=== PATIENT | male | born 1980 | race Caucasian/White ===

== ENCOUNTER → 2016-11-13 | Outpatient (CLI) | payer BC ==
[2016-11-13 10:12] LABS: DAYS OF ABSTINENCE >7; METHOD OF COLLECTION MASTURBATION; SEMEN TIME OF COLLECTION 833; TYPE OF SPECIMEN CONTAINER STERILE CUP
[2016-11-13 10:13] LABS: SEMEN COLOR YELLOW-GRAY (GRY/GRYWHTE); SEMEN VOLUME 2.3 ML (>1.5)
[2016-11-13 10:36] LABS: SPERM VIABILITY STAIN NOT INDICATED % (>58%)
== END | disposition home or self-care (01) ==
LOC: C.LAB 09:07
PROVIDERS: ATTEND Obstetrics & Gynecology
DX: Z31.41 Encounter for fertility testing (principal)

== ENCOUNTER 2017-03-04 21:39 | Emergency (ER) | payer BC, OTHER ==
[~2017-03-04] VITALS: Ht 190.5 cm; Wt 104.9 kg
[2017-03-04 21:46] VITALS: TEMP 37.4; Ht 190.5 cm; Wt 104.9 kg
[2017-03-04] MEDS ORDERED: CEFTRIAXONE SOD INJ 1 GM ADDVIAL IV STA (22:28)
[2017-03-04] MEDS ORDERED: DIPHTHERIA/TETANUS/PERTUSSIS 0.5 ML SYR/VIAL IM. ONE (22:30)
[2017-03-04 23:22] LABS: ISTAT CREATININE 1.2 mg/dl (0.6-1.3); ISTAT IONIZED CALCIUM 1.14 mmol/l (1.12-1.32); ISTAT POTASSIUM 3.8 mEq/L (3.3-5.0)
[2017-03-04 23:28] LABS: BASO % 0.2 %; BASO ABS # 0.02 K/uL (0-0.2); EOS % 1.9 %; EOS ABS # 0.18 K/uL (0-0.5); HEMATOCRIT 39.5 % (42-52); HEMOGLOBIN 14.1 g/dL (14.0-18.0); IG# 0.02 K/uL (0.00-0.02); LYMPH % 21.4 %; LYMPH ABS # 1.98 K/uL (1.2-3.4); MEAN CELL VOLUME 91.2 fL (80-100); MEAN CORPUSCULAR HEMOGLOBIN 32.6 pg (25-34); MEAN CORPUSCULAR HGB CONC 35.7 g/dl (32-36); MEAN PLATELET VOLUME 10.2 fL (7.4-10.4); MONO % 10.2 %; MONO ABS # 0.95 K/uL (0.11-0.59); NEUT % 66.1 %; NEUT ABS # 6.12 K/uL (1.4-6.5); PLATELET COUNT 140 K/uL (130-400); RED CELL DISTRIBUTION WIDTH CV 11.8 % (11.5-14.5); RED CELL DISTRIBUTION WIDTH SD 39.6 fL (36.4-46.3); WHITE BLOOD COUNT 9.27 K/uL (4.8-10.8)
[2017-03-04 23:55] LABS: ALBUMIN 3.6 gm/dl (3.4-5.0); ALT/SGPT 28 U/L (12-78); AST/SGOT 28 U/L (15-37); BLOOD UREA NITROGEN 15 mg/dl (7-18); CALCIUM 8.9 mg/dl (8.5-10.1); CARBON DIOXIDE 30 mmol/L (21-32); CREATININE 1.11 mg/dl (0.60-1.40); GLUCOSE 105 mg/dl (70-99); POTASSIUM 3.7 mmol/L (3.5-5.1); SODIUM 138 mmol/L (136-145); URIC ACID 5.3 mg/dl (2.6-7.2)
[2017-03-04 23:57] LABS: ALKALINE PHOSPHATASE 66 U/L (45-117); TOTAL PROTEIN 7.6 gm/dl (6.4-8.2)
[2017-03-05] MEDS ORDERED: SEPTRA DS HOME PACK 1 EA VIAL PO ONE (01:00)
[2017-03-05] MEDS ORDERED: CEPHALEXIN 500MG HOME PACK 1 EA BTL PO ONE (01:00)
[2017-03-05] MEDS ORDERED: CEPH500C2 PO (01:02)
[2017-03-05] MEDS ORDERED: SULF800T23 PO (01:02)
[2017-03-05 01:20] VITALS: BP 134/70; PULSE 68; O2SAT 100
--- NOTE | 2017-03-05 03:51 | EMERGENCY ROOM VISIT NOTE ---
History First contact with patient: 22:15 Chief Complaint: ELBOW PAIN/INJURY Stated Complaint: RIGHT ELBOW POSSIBLY INFECTED History of Present Illness The patient is a 36 year old male who presents to the Emergency Room with complaints of right elbow pain and swelling for the past 2 days that is steadily getting worse of subjective fever and chills. Patient has been taking Motrin [id number] and icing the area. No known injury. Tetanus is not current. He describes the pain as throbbing, ranging in severity 5 out of 10 worse with palpation and better with rest. It does not radiate. Patient denies chest pain, dyspnea, numbness, tingling, injury to the area, cough, congestion. No history of gout. No history of bursitis. No IV drug abuse. Review of Systems See HPI for pertinent positives & negatives. A total of 10 systems reviewed and were otherwise negative. Past Medical/Surgical History None Social History Smoking Status: Never Smoker Smokeless Tobacco Use: No Alcohol Use: occasionally Drug Use: none Marital Status: Housing Status: lives with family Occupation Status: employed Current/Historical Medications Scheduled Cephalexin Monohydrate (Keflex), 500 MG PO QID Sulfa/Trimethoprim (Bactrim Ds 800MG/160MG), 1 TAB PO BID Physical Exam Vital Signs Date Time Temp Pulse Resp B/P (MAP) Pulse Ox O2 Delivery O2 Flow Rate FiO2 03/05/17 01:20 68 18 134/70 100 03/05/17 00:33 70 20 140/72 99 Room Air 03/04/17 21:46 37.4 73 18 157/84 98 Room Air Physical Exam VITALS: Vitals are noted on the nurse's note and reviewed by myself. Vital signs hypertensive. GENERAL:pleasant male, in no acute distress, nondiaphoretic, well-developed well -nourished. SKIN: The skin was without rashes, erythema, edema, or bruising. There is no tenting of the skin. Capillary reflex less than 2 seconds. HEAD: Normocephalic atraumatic. EARS: External auditory canals clear, tympanic membranes pearly longoria without erythema or effusion bilaterally. EYES: Pupils equal round and reactive to light and accommodation. Conjunctivae without injection, sclerae without icterus. Extraocular movements intact. NOSE: Patent, turbinates without inflammation or discharge. MOUTH: Mucous membranes moist. Pharynx without erythema or exudate. Uvula midline. Airway patent. Tongue does not deviate. NECK: Supple without nuchal rigidity. No lymphadenopathy. No thyromegaly. Cervical spine is nontender. No JVD. HEART: Regular rate and rhythm without murmurs gallops or rubs. LUNGS: Clear to auscultation bilaterally without wheezes, rales or rhonchi. No dullness to percussion. No retractions or accessory muscle use. ABDOMEN: Positive bowel sounds x 4. Normal tympanic percussion. Soft, nontender, without masses or organomegaly. Salgado sign negative. No guarding or rebound tenderness. MUSCULOSKELETAL: No muscle atrophy noted. Right elbow erythematous and slightly edematous with lymphangitis going up the bicep region concerning for cellulitis. Patient can fully extend and flex the elbow without pain. Radial pulses +2 equal present bilaterally. No axillary lymph node enlargement. NEURO: Patient was alert and oriented to person place and time. Normal sensation to light and sharp touch. No focal neurological deficits. Medical Decision & Procedures Laboratory Results 03/04/17 23:00 Red Blood Count 4.33, Mean Corpuscular Volume 91.2, Mean Corpuscular Hemoglobin 32.6, Mean Corpuscular Hemoglobin Concent 35.7, Mean Platelet Volume 10.2, Neutrophils (%) (Auto) 66.1, Lymphocytes (%) (Auto) 21.4, Monocytes (%) (Auto) 10.2, Eosinophils (%) (Auto) 1.9, Basophils (%) (Auto) 0.2, Neutrophils # (Auto ) 6.12, Lymphocytes # (Auto) 1.98, Monocytes # (Auto) 0.95, Eosinophils # (Auto ) 0.18, Basophils # (Auto) 0.02 03/04/17 23:00 Test 03/04/17 23:00 03/04/17 23:05 03/04/17 23:09 White Blood Count 9.27 K/uL (4.8-10.8) Red Blood Count 4.33 M/uL (4.7-6.1) Hemoglobin 14.1 g/dL (14.0-18.0) Hematocrit 39.5 % (42-52) Mean Corpuscular Volume 91.2 fL (80-100) Mean Corpuscular Hemoglobin 32.6 pg (25-34) Mean Corpuscular Hemoglobin Concent 35.7 g/dl (32-36) Platelet Count 140 K/uL (130-400) Mean Platelet Volume 10.2 fL (7.4-10.4) Neutrophils (%) (Auto) 66.1 % Lymphocytes (%) (Auto) 21.4 % Monocytes (%) (Auto) 10.2 % Eosinophils (%) (Auto) 1.9 % Basophils (%) (Auto) 0.2 % Neutrophils # (Auto) 6.12 K/uL (1.4-6.5) Lymphocytes # (Auto) 1.98 K/uL (1.2-3.4) Monocytes # (Auto) 0.95 K/uL (0.11-0.59) Eosinophils # (Auto) 0.18 K/uL (0-0.5) Basophils # (Auto) 0.02 K/uL (0-0.2) RDW Standard Deviation 39.6 fL (36.4-46.3) RDW Coefficient of Variation 11.8 % (11.5-14.5) Immature Granulocyte % (Auto) 0.2 % Immature Granulocyte # (Auto) 0.02 K/uL (0.00-0.02) Erythrocyte Sedimentation Rate 8 mm/hr (0-14) Est Creatinine Clear Calc Drug Dose 122.9 ml/min Estimated GFR () 99.9 Estimated GFR (Non- 86.2 BUN/Creatinine Ratio 13.4 (10-20) Uric Acid 5.3 mg/dl (2.6-7.2) Calcium Level 8.9 mg/dl (8.5-10.1) Total Bilirubin 0.4 mg/dl (0.2-1) Direct Bilirubin < 0.1 mg/dl (0-0.2) Aspartate Amino Transf (AST/SGOT) 28 U/L (15-37) Alanine Aminotransferase (ALT/SGPT) 28 U/L (12-78) Alkaline Phosphatase 66 U/L (45-117) C-Reactive Protein 7.07 mg/dl (0-0.29) Total Protein 7.6 gm/dl (6.4-8.2) Albumin 3.6 gm/dl (3.4-5.0) Bedside Hemoglobin 12.2 g/dl (14.0-18.0) Bedside Hematocrit 36 % (42-52) Bedside Sodium 141 mEq/L (135-144) Bedside Potassium 3.8 mEq/L (3.3-5.0) Bedside Chloride 101 mEq/L (101-112) Bedside Total CO2 27 mEq/l (24-31) Anion Gap 18.0 mmol/L (16-25) Bedside Blood Urea Nitrogen 15 mg/dl (7-18) Bedside Creatinine 1.2 mg/dl (0.6-1.3) Bedside Glucose (other) 115 mg/dl (70-99) Bedside Ionized Calcium ([place]) 1.14 mmol/l (1.12-1.32) Bedside Lactic Acid Venous 1.28 mmol/L (0.90-1.70) Medications Administered Medications (Trade) Dose Ordered Sig/Cheri Route Start Time Stop Time Status Last Admin Dose Admin Ceftriaxone Sodium (Rocephin Inj) 1 gm NOW STAT IV 03/04/17 22:28 03/04/17 22:32 DC 03/04/17 23:21 1 GM Diphtheria/ Pertussis/Tetanus Vacc (Adacel Inj) 0.5 ml ONCE ONCE IM. 03/04/17 22:30 03/04/17 22:32 DC 03/04/17 23:22 0.5 ML Cephalexin Monohydrate (Keflex 500MG Home Pack) 1 homepack NOW ONCE PO 03/05/17 01:00 03/05/17 01:01 DC 03/05/17 01:20 1 HOMEPACK Trimethoprim/ Sulfamethoxazole (Sulfameth/ Trimeth Ds 800/ 160MG Home Pack) 1 homepack UD ONCE PO 03/05/17 01:00 03/05/17 01:01 DC 03/05/17 01:20 1 HOMEPACK ED Course Prior records reviewed and summarized as above. Triage Nursing notes reviewed. The patient's history was concerning for swelling and redness of the skin. Differential diagnosis: Etiologies such as gout, bursitis, septic joint, septic bursitis, cellulitis, abscess, MRSA infection, DVT, necrotizing fasciitis, dermatitis, drug eruption, as well as others were entertained.. Physical examination: As above ER treatment provided: Rocephin On reassessment the patient felt better. Diagnostics interpreted by me: The labs revealed no leukocytosis. Mildly elevated inflammatory markers Blood cultures pending Imaging studies: Elbow x-ray negative for fracture or dislocation or effusion per my interpretation Ultrasound negative for DVT per radiology This appears to be left upper extremity cellulitis. Patient had no signs of joint involvement. He is able to fully extend and flex the arm. He was afebrile and nontoxic. Negative lactic acid. No leukocytosis. Patient was neurovascularly and neurologically intact. He was advised to take medications as directed, rest, stay well-hydrated and to follow-up with family care in 2-3 days for recheck or here in the ER sooner for fevers, spreading infection, worsening signs or symptoms or as needed. By the evaluation outlined above emergent etiologies such as abscess, necrotizing fasciitis, DVT, as well as others were deemed relatively unlikely. The pt informed about the findings as listed above. All questions were answered and pleased with the treatment. Return instructions were outlined and the patient was discharged in stable condition. Outpatient prescription management: Keflex, Bactrim Referral: The patient was referred back to primary care physician for follow-up in 2 to 3 days for a recheck of the current condition. case reviewed with my Attending Medical Decision As above Medication Reconcilliation Current Medication List: was personally reviewed by me Blood Pressure Screening Patient's blood pressure: Elevated blood pressure Blood pressure disposition: Elevated BP felt to be situational Impression Primary Impression: Cellulitis of right upper arm Departure Information Dispostion Home / Self-Care Condition GOOD Prescriptions Sulfa/Trimethoprim (Bactrim Ds 800MG/160MG) Tab 1 TAB PO BID for 9 Days, #18 TAB Prov: Linda Kam .SIMÓN 03/05/17 Cephalexin Monohydrate (KEFLEX) 500 Mg Cap 500 MG PO QID for 9 Days, #36 CAP Prov: Linda Kam .SIMÓN 03/05/17 Referrals Klaudia Irby M.D. (PCP) Patient Instructions My [facility]
--- NOTE | 2017-03-05 06:46 | DIAGNOSTIC IMAGING REPORT ---
R ELBOW MIN 3 VIEWS ROUTINE HISTORY: 36 years-old Male pain/swelling acute pain and swelling of the right elbow COMPARISON: None available TECHNIQUE: 3 views of the right elbow FINDINGS: Mild soft tissue swelling is noted posteriorly about the elbow. Minimal spurring of the olecranon process. No large joint effusion, acute fracture, subluxation or significant degenerative changes. IMPRESSION: Mild soft tissue swelling without fracture. The above report was generated using voice recognition software. It may contain grammatical, syntax or spelling errors. Electronically signed by: Sadiq Cervantes M.D. 03/05/2017 6:44 AM Dictated Date/Time: 03/05/2017 6:43 AM
--- NOTE | 2017-03-05 07:19 | DIAGNOSTIC IMAGING REPORT ---
RIGHT UPPER EXTREMITY VENOUS DOPPLER HISTORY: right elbow swelling COMPARISON STUDY: None. FINDINGS: The right internal jugular vein is patent. There is normal flow within the right subclavian vein. There is normal flow and compressibility within the right axillary, basilic, brachial, radial, ulnar, and visualized cephalic veins. Prominent right upper arm lymph nodes which may be reactive. The largest measures 1.6 x 0.4 x 0.5 cm. IMPRESSION: No DVT within the right upper extremity. Prominent right upper arm lymph nodes which may be reactive. Electronically signed by: Dayne Aldridge M.D. 03/05/2017 7:17 AM Dictated Date/Time: 03/05/2017 7:17 AM
== END 2017-03-05 01:21 | disposition home or self-care (01) ==
LOC: C.EDB 21:40 → C.EDA 03-05 01:21
DX: L03.113 Cellulitis of right upper limb (principal); Z23 Encounter for immunization

== ENCOUNTER 2017-06-30 15:01 | Emergency (ER) | payer OTHER ==
[~2017-06-30] VITALS: Ht 190.5 cm; Wt 104.0 kg
[2017-06-30 15:04] VITALS: BP 149/87; TEMP 36.6; Ht 190.5 cm; Wt 104.0 kg
[2017-06-30 15:36] LABS: BASO % 0.5 %; BASO ABS # 0.03 K/uL (0-0.2); EOS % 2.7 %; EOS ABS # 0.15 K/uL (0-0.5); HEMATOCRIT 41.1 % (42-52); HEMOGLOBIN 14.7 g/dL (14.0-18.0); LYMPH % 41.3 %; LYMPH ABS # 2.27 K/uL (1.2-3.4); MEAN CELL VOLUME 89.7 fL (80-100); MEAN CORPUSCULAR HEMOGLOBIN 32.1 pg (25-34); MEAN CORPUSCULAR HGB CONC 35.8 g/dl (32-36); MEAN PLATELET VOLUME 10.1 fL (7.4-10.4); MONO % 8.2 %; MONO ABS # 0.45 K/uL (0.11-0.59); NEUT % 47.3 %; PLATELET COUNT 149 K/uL (130-400); RED CELL DISTRIBUTION WIDTH SD 38.9 fL (36.4-46.3)
[2017-06-30 15:53] LABS: CREATININE 1.15 mg/dl (0.60-1.40); POTASSIUM 3.5 mmol/L (3.5-5.1)
[2017-06-30 15:54] LABS: CALCIUM 8.6 mg/dl (8.5-10.1)
[2017-06-30] MEDS ORDERED: OPTIRAY 320 IV PRN (16:30)
--- NOTE | 2017-06-30 16:34 | EMERGENCY ROOM VISIT NOTE ---
History First contact with patient: 15:06 Chief Complaint: HEADACHE Stated Complaint: HEADACHE,DIZZY AFTER LIFTING History of Present Illness The patient is a 37 year old male who presents to the Emergency Room with complaints of headache and lightheadedness. The patient reports that he was lifting weights approximately 30 minutes ago when symptoms began. He states that he was performing a heavy bench press and felt a popping sensation in his head. He then developed a headache and lightheadedness. He states that he feels like he has slight trouble focusing his eyes but denies blurred vision or double vision. He states that his headache is a dull pain in the front of his head and rates the discomfort a 4/10. Symptoms have been constant since they began and he states that the headache may have improved slightly. There have been no aggravating or alleviating factors. He denies any syncopal episodes. He states he does not feel like the room is spinning. He denies any numbness or weakness, slurred speech, confusion, neck pain or stiffness. He feels very mild nausea but has not vomited. The patient does admit that over the past 1 year, he sometimes becomes lightheaded and has tension type headaches intermittently which he attributes to stress and anxiety. He has never had symptoms like this which began with exertion in the past. He reports a family history of a CVA in his grandfather but no other pertinent family history. Review of Systems A complete 10 point review of systems was reviewed with the patient with pertinent positives and negatives as per history of present illness. All else were negative. Past Medical/Surgical History Medical Problems: (1) No significant active problems Surgical Problems: (1) No significant past surgical history Family History Stroke Social History Smoking Status: Never Smoker Alcohol Use: occasionally Drug Use: none Marital Status: Housing Status: lives with family Occupation Status: employed Current/Historical Medications No Active Prescriptions or Reported Meds Physical Exam Vital Signs Date Time Temp Pulse Resp B/P (MAP) Pulse Ox O2 Delivery O2 Flow Rate FiO2 06/30/17 17:08 62 18 98 06/30/17 16:24 62 16 99 Room Air 06/30/17 15:04 36.6 60 18 149/87 96 Room Air Physical Exam VITALS: Vitals are noted on the nurse's note and reviewed by myself. Vital signs stable. GENERAL: This is a 37-year-old male, in no acute distress, nondiaphoretic, well- developed well-nourished. SKIN: The skin was without rashes. HEAD: Normocephalic atraumatic. EARS: External auditory canals clear, tympanic membranes pearly longoria without erythema or effusion bilaterally. EYES: Pupils equal round and reactive to light and accommodation. Extraocular movements intact. MOUTH: Mucous membranes moist. NECK: Supple without nuchal rigidity. Cervical spine is nontender. No meningismus. HEART: Regular rate and rhythm without murmurs gallops or rubs. LUNGS: Clear to auscultation bilaterally without wheezes, rales or rhonchi. MUSCULOSKELETAL: Strength 5/5 throughout. NEURO: Patient was alert and oriented to person place and time. Distal sensation intact. No focal neurological deficits. Normal finger to nose testing. Medical Decision & Procedures ER Provider Diagnostic Interpretation: HEAD CTA HISTORY: Headache. TECHNIQUE: Multiaxial CT images of the head were performed both before and after the intravenous administration of contrast to evaluate the major cerebral vessels. Maximum intensity projection images were also obtained. A dose lowering technique was utilized adhering to the principles of ALARA. COMPARISON: None. FINDINGS: There is no mass, hematoma, midline shift, or acute infarct. Small retention cysts within the left maxillary sinus and right ethmoid air cells. The mastoid air cells are clear. Prominence of the cisterna magna versus an arachnoid cyst within the midline of the posterior fossa. This measures 4.9 x 2.3 cm. This is of doubtful clinical significance. No abnormal enhancement. Visualized intracranial internal carotid arteries, distal vertebral arteries, and basilar artery are widely patent. There is no significant stenosis, occlusion, or aneurysm seen within the bilateral ACAs, MCAs, or machine operator slitter technician. IMPRESSION: No significant stenosis, occlusion, or aneurysm within the [place]. No acute intracranial abnormality. Laboratory Results 06/30/17 15:20 Red Blood Count 4.58, Mean Corpuscular Volume 89.7, Mean Corpuscular Hemoglobin 32.1, Mean Corpuscular Hemoglobin Concent 35.8, Mean Platelet Volume 10.1, Neutrophils (%) (Auto) 47.3, Lymphocytes (%) (Auto) 41.3, Monocytes (%) (Auto) 8.2, Eosinophils (%) (Auto) 2.7, Basophils (%) (Auto) 0.5, Neutrophils # (Auto) 2.60, Lymphocytes # (Auto) 2.27, Monocytes # (Auto) 0.45, Eosinophils # (Auto) 0.15, Basophils # (Auto) 0.03 06/30/17 15:20 Test 06/30/17 15:20 White Blood Count 5.50 K/uL (4.8-10.8) Red Blood Count 4.58 M/uL (4.7-6.1) Hemoglobin 14.7 g/dL (14.0-18.0) Hematocrit 41.1 % (42-52) Mean Corpuscular Volume 89.7 fL (80-100) Mean Corpuscular Hemoglobin 32.1 pg (25-34) Mean Corpuscular Hemoglobin Concent 35.8 g/dl (32-36) Platelet Count 149 K/uL (130-400) Mean Platelet Volume 10.1 fL (7.4-10.4) Neutrophils (%) (Auto) 47.3 % Lymphocytes (%) (Auto) 41.3 % Monocytes (%) (Auto) 8.2 % Eosinophils (%) (Auto) 2.7 % Basophils (%) (Auto) 0.5 % Neutrophils # (Auto) 2.60 K/uL (1.4-6.5) Lymphocytes # (Auto) 2.27 K/uL (1.2-3.4) Monocytes # (Auto) 0.45 K/uL (0.11-0.59) Eosinophils # (Auto) 0.15 K/uL (0-0.5) Basophils # (Auto) 0.03 K/uL (0-0.2) RDW Standard Deviation 38.9 fL (36.4-46.3) RDW Coefficient of Variation 12.0 % (11.5-14.5) Immature Granulocyte % (Auto) 0.0 % Immature Granulocyte # (Auto) 0.00 K/uL (0.00-0.02) Anion Gap 7.0 mmol/L (3-11) Est Creatinine Clear Calc Drug Dose 117.0 ml/min Estimated GFR () 95.0 Estimated GFR (Non- 82.0 BUN/Creatinine Ratio 15.5 (10-20) Calcium Level 8.6 mg/dl (8.5-10.1) Medical Decision The differential diagnosis includes acute intracranial bleed, meningitis, encephalitis, mass or mass effect, sinusitis, infection, tumor, headache, temporal arteritis and carbon monoxide exposure, and migraine. The patient is a 37-year-old male who presents today complaining of mild headache and lightheadedness. CT/CTA of the head were performed due to the exertional component of the patient's symptoms. These were found to be unremarkable. Labs revealed no leukocytosis, anemia or concerning electrolyte abnormalities. Patient does admit that he is extremely anxious about his symptoms and I do feel this is likely contributing to some of his symptoms today. He was advised to use [id number] treatment for his pain and follow -up with the PCP this week. He verbalized understanding of my assessment and treatment plan and was discharged home in good condition. The patient's case was reviewed with Dr. Lindsey, ED attending physician, who agreed with my assessment and treatment plan. Based on the patient's presentation and work up, I feel the patient is stable for outpatient treatment. The patient was educated to return to the emergency department for any worsening of their current condition or new/concerning symptoms. He will follow up with his PCP. Medication Reconcilliation Current Medication List: was personally reviewed by me Blood Pressure Screening Patient's blood pressure: Elevated blood pressure Blood pressure disposition: Elevated BP felt to be situational Impression Primary Impression: Headache Departure Information Dispostion Home / Self-Care Condition GOOD Prescriptions No Active Prescriptions or Reported Meds Referrals Klaudia Irby M.D. (PCP) Patient Instructions My [facility] Additional Instructions You have been treated in the Emergency Department for a Headache. For pain control, you can use the following [id number] medicines (if >12 yo): - Regular strength (325mg/tab) Tylenol (acetaminophen) 2 tabs every 4-6 hours as needed. Do not exceed 12 tablets in a 24 hour period. Avoid taking more than 4 grams (4000 mg) of Tylenol per day. This includes any other sources of acetaminophen you may take on a regular basis. - Regular strength (200 mg/tab) Advil (ibuprofen) 1-2 tabs every 4-6 hours as needed. Do not exceed a dose of 3200 mg per day. As with any visit to the emergency department, you should follow-up with your primary care provider regarding this visit. Return to the Emergency Department if your current symptoms worsen despite treatment course outlined above, or if you develop any of the following symptoms : intractable pain despite aforementioned treatment course, visual disturbances , loss of vision, unilateral weakness or facial drooping, slurring of speech, loss of coordination, or loss of consciousness. Problem Qualifiers Primary Impression: Headache Headache type: unspecified Headache chronicity pattern: acute headache Intractability: not intractable Qualified Codes: R51 - Headache
--- NOTE | 2017-06-30 16:37 | DIAGNOSTIC IMAGING REPORT ---
HEAD CTA HISTORY: Headache. TECHNIQUE: Multiaxial CT images of the head were performed both before and after the intravenous administration of contrast to evaluate the major cerebral vessels. Maximum intensity projection images were also obtained. A dose lowering technique was utilized adhering to the principles of ALARA. COMPARISON: None. FINDINGS: There is no mass, hematoma, midline shift, or acute infarct. Small retention cysts within the left maxillary sinus and right ethmoid air cells. The mastoid air cells are clear. Prominence of the cisterna magna versus an arachnoid cyst within the midline of the posterior fossa. This measures 4.9 x 2.3 cm. This is of doubtful clinical significance. No abnormal enhancement. Visualized intracranial internal carotid arteries, distal vertebral arteries, and basilar artery are widely patent. There is no significant stenosis, occlusion, or aneurysm seen within the bilateral ACAs, MCAs, or farmworker poultry. IMPRESSION: No significant stenosis, occlusion, or aneurysm within the [place] of [place]. No acute intracranial abnormality. Electronically signed by: Dayne Aldridge M.D. 06/30/2017 4:35 PM Dictated Date/Time: 06/30/2017 4:29 PM
[2017-06-30 17:08] VITALS: PULSE 62; O2SAT 98
== END 2017-06-30 17:10 | disposition home or self-care (01) ==
LOC: C.EDB 15:03 → C.EDC 17:10
DX: R51 Headache (principal); R42 Dizziness and giddiness; Z82.3 Family history of stroke; F41.1 Generalized anxiety disorder